=== PATIENT | male | born 1975 | race Caucasian/White ===

== ENCOUNTER 2018-08-24 22:50 | Emergency (ER) | payer MEDICAID ==
[2018-08-24 22:57] VITALS: BP 148/97
[2018-08-24] MEDS ORDERED: prednisoLONE ACET 1% 5 ML OPHT.BTL OP ONE (23:03)
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
== END 2018-08-24 23:29 ==
DX: H33.21 Serous retinal detachment, right eye (principal)